=== PATIENT | male | born 1950 | race Caucasian/White ===

== ENCOUNTER 2024-05-08 14:26 | Inpatient (IN) ==
[2024-05-08] MEDS ORDERED: POTASSIUM CHLORIDE 40 MEQ in DEXTROSE 5% IN WATER 500 ML IV PRN (14:59)
[2024-05-08] MEDS ORDERED: POTASSIUM CHLORIDE 20 MEQ TABLET PO PRN ×2 (14:59)
[2024-05-08] MEDS ORDERED: ONDANSETRON 4 MG/2 ML VIAL IV PRN ×2 (14:59→18:05)
[2024-05-08] MEDS ORDERED: IPRATROPIUM/ALBUTEROL 3 ML AMPUL.NEB NEB PRN ×2 (14:59→18:05)
[2024-05-08] MEDS ORDERED: POLYETHYLENE GLYCOL 3350 17 GM PACKET PO PRN (14:59)
[2024-05-08] MEDS ORDERED: METOCLOPRAMIDE 10 MG/2 ML VIAL IV PRN (14:59)
[2024-05-08] MEDS ORDERED: METOPROLOL TARTRATE 5 MG/5 ML VIAL IV PRN (14:59)
[2024-05-08] MEDS ORDERED: SENNOSIDES 1 TABLET PO PRN (14:59)
[2024-05-08] MEDS ORDERED: MAGNESIUM SULFATE 2 GM/50 ML BAG IV PRN (14:59)
[2024-05-08] MEDS ORDERED: morphine 4 MG/ML VIAL IV PRN (14:59)
[2024-05-08 16:07] LABS: Basophils # (Auto) 0.04 K/mcL (0.00-0.30); Basophils % (Auto) 0.3 % (0.0-2.0); Eosinophils # (Auto) 0.01 K/mcL (0.00-0.70); Eosinophils % (Auto) 0.1 % (0.0-7.0); Lymphocytes # (Auto) 0.86 K/mcL (1.50-4.80); Lymphocytes % (Auto) 6.4 % (15.5-49.0); Mean Cell Volume 98.6 fL (80.0-100.0); Mean Corpuscular HGB Conc 32.1 g/dL (31.0-36.0); Monocytes # (Auto) 1.01 K/mcL (0.10-0.90); Monocytes % (Auto) 7.5 % (1.0-12.0); Neutrophils % (Auto) 85.6 % (38.0-78.0); Platelet Count 212 K/mcL (140-440); RBC 5.68 M/mcL (4.63-6.08); Red Cell Distribution Width 13.4 % (11.5-14.5); WBC 13.5 K/mcL (4.5-11.0)
[2024-05-08] MEDS ORDERED: LORazepam 2 MG/ML VIAL IV PRN (16:39)
[2024-05-08] MEDS ORDERED: chlordiazePOXIDE 25 MG CAPSULE PO PRN (16:39)
[2024-05-08] MEDS ORDERED: PROPOFOL 200 MG/20 ML VIAL IV ONE (16:42)
[2024-05-08] MEDS ORDERED: KETAMINE 50 MG/ML Syringe IV ONE (16:42)
[2024-05-08] MEDS ORDERED: ePHEDrine 50 MG/5 ML SYRINGE (ANEST) IV ONE (16:43)
[2024-05-08] MEDS ORDERED: ONDANSETRON 4 MG/2 ML VIAL ONE (16:43)
[2024-05-08] MEDS ORDERED: METOCLOPRAMIDE 10 MG/2 ML VIAL ONE (16:43)
[2024-05-08] MEDS ORDERED: TRANEXAMIC ACID 1,000 MG/10 ML VIAL ONE (16:43)
[2024-05-08] MEDS ORDERED: LIDOCAINE 2% PF 5 ML VIAL ONE (16:43)
[2024-05-08] MEDS ORDERED: GLYCOPYRROLATE 0.2 MG/ML VIAL IV ONE (16:43)
[2024-05-08] MEDS ORDERED: PHENYLephrine 1 MG/10 ML SYRINGE (ANEST) ONE (16:43)
[2024-05-08] MEDS ORDERED: DEXAMETHASONE 10 MG/ML VIAL ONE (16:43)
[2024-05-08 16:50] LABS: ALT/SGPT 24 U/L (<40); AST/SGOT 23 U/L (<40); Albumin 4.2 gm/dL (3.2-5.2); Albumin/Globulin Ratio 1.6 (1.0-2.3); Alkaline Phosphatase 135 U/L (39-117); Bilirubin,Direct 0.7 mg/dL (<0.3); Bilirubin,Total 1.6 mg/dL (0.1-1.0); Blood Urea Nitrogen 14 mg/dL (8-23); Carbon Dioxide 28 mmol/L (22-30); Chloride 98 mmol/L (96-108); Globulin 2.7 gm/dL (2.2-3.7); Glomerular Filtration Rate 87; Glucose 113 mg/dL (70-105); Lactate Dehydrogenase 185 U/L (135-225); Phosphorous 3.5 mg/dL (2.5-4.5); Potassium 4.5 mmol/L (3.3-5.1); Sodium 138 mmol/L (133-145); Triglycerides 40 mg/dL (<150); Uric Acid 5.3 mg/dL (2.5-8.0)
[2024-05-08] MEDS: ceFAZolin 1 GM VIAL IV SCH (17:30)
[2024-05-08] MEDS ORDERED: ceFAZolin 1 GM VIAL ONE (17:43)
[2024-05-08] MEDS ORDERED: METOPROLOL TARTRATE 5 MG/5 ML VIAL IV ONE (17:47)
[2024-05-08] MEDS ORDERED: HYDROmorphone 0.5 MG/0.5 ML SYRINGE ONE (17:53)
[2024-05-08] MEDS ORDERED: fentaNYL 100 MCG/2 ML VIAL IV PRN (18:05)
[2024-05-08] MEDS ORDERED: NALOXONE HCL 0.4 MG/ML VIAL IV PRN (18:05)
[2024-05-08] MEDS ORDERED: HYDROmorphone 0.5 MG/0.5 ML SYRINGE IV PRN (18:05)
[2024-05-08] MEDS ORDERED: LACTATED RINGERS 250 ML IV PRN (18:05)
[2024-05-08] MEDS ORDERED: FLEETS ADULT 1 DOSE ENEMA PR PRN (18:11)
[2024-05-08] MEDS ORDERED: KETOROLAC 15 MG/ML VIAL IV PRN (18:11)
[2024-05-08] MEDS ORDERED: BISACODYL 10 MG SUPP.RECT PR PRN (18:11)
[2024-05-08] MEDS: ACETAMINOPHEN 1,000 MG/100 ML BAG IV ONE (18:44)
[2024-05-08] MEDS: TRANEXAMIC ACID 1,000 MG/10 ML VIAL IV ONE (19:02)
[2024-05-08] MEDS: ceFAZolin 2 GM in DEXTROSE 5% IN WATER 50 ML IV SCH (20:10)
[2024-05-08] MEDS: FUROSEMIDE 40 MG/4 ML VIAL IV ONE ×2 (20:19→20:58)
[2024-05-08] MEDS: LACTATED RINGERS 1,000 ML IV SCH (20:58)
[2024-05-08] MEDS: ATORVASTATIN 20 MG TABLET PO SCH (20:58)
[2024-05-08] MEDS: 0.9 % SODIUM CHLORIDE 10 ML SYRINGE IV SCH (20:58)
[2024-05-08] MEDS: DOCUSATE SODIUM 100 MG CAPSULE PO SCH (20:58)
[2024-05-09] MEDS: ceFAZolin 1 GM VIAL IV SCH ×2 (00:58→09:40)
[2024-05-09 05:48] LABS: Basophils # (Auto) 0.01 K/mcL (0.00-0.30); Basophils % (Auto) 0.1 % (0.0-2.0); Eosinophils # (Auto) 0 K/mcL (0.00-0.70); Eosinophils % (Auto) 0 % (0.0-7.0); Hematocrit 50.3 % (40.1-51.0); Hemoglobin 16.3 g/dL (13.7-17.5); Lymphocytes # (Auto) 0.36 K/mcL (1.50-4.80); Lymphocytes % (Auto) 3.5 % (15.5-49.0); Mean Cell Volume 98.1 fL (80.0-100.0); Mean Corpuscular HGB Conc 32.4 g/dL (31.0-36.0); Mean Platelet Volume 9.3 fL (8.8-12.5); Monocytes # (Auto) 0.39 K/mcL (0.10-0.90); Monocytes % (Auto) 3.8 % (1.0-12.0); Neutrophils % (Auto) 92.5 % (38.0-78.0); Platelet Count 199 K/mcL (140-440); RBC 5.13 M/mcL (4.63-6.08); Red Cell Distribution Width 13.2 % (11.5-14.5); WBC 10.4 K/mcL (4.5-11.0)
[2024-05-09 06:17] LABS: ALT/SGPT 18 U/L (<40); AST/SGOT 22 U/L (<40); Albumin 3.8 gm/dL (3.2-5.2); Albumin/Globulin Ratio 1.5 (1.0-2.3); Alkaline Phosphatase 110 U/L (39-117); Bilirubin,Direct 0.7 mg/dL (<0.3); Bilirubin,Total 1.5 mg/dL (0.1-1.0); Blood Urea Nitrogen 14 mg/dL (8-23); Calcium 8.6 mg/dL (8.6-10.4); Carbon Dioxide 27 mmol/L (22-30); Chloride 96 mmol/L (96-108); Globulin 2.6 gm/dL (2.2-3.7); Glomerular Filtration Rate 87; Glucose 184 mg/dL (70-105); Lactate Dehydrogenase 172 U/L (135-225); Phosphorous 3.3 mg/dL (2.5-4.5); Potassium 4.6 mmol/L (3.3-5.1); Sodium 134 mmol/L (133-145); Triglycerides 32 mg/dL (<150); Uric Acid 5.1 mg/dL (2.5-8.0)
[2024-05-09] MEDS ORDERED: ENALAPRILAT 1.25 MG/ML VIAL IV PRN (08:27)
[2024-05-09] MEDS: MULTIVIT,THER IRON,CA,FA & MIN 1 TABLET PO SCH (08:45)
[2024-05-09] MEDS: FOLIC ACID 1 MG TABLET PO SCH (08:46)
[2024-05-09] MEDS: METOPROLOL SUCCINATE 50 MG TAB.XL.24H PO SCH (08:48)
[2024-05-09] MEDS ORDERED: THIAMINE 100 MG/ML VIAL IM SCH (09:00)
[2024-05-09] MEDS ORDERED: LISINOPRIL 20 MG TABLET PO SCH (09:00)
[2024-05-09] MEDS ORDERED: amLODIPine 5 MG TABLET PO SCH (09:00)
[2024-05-09] MEDS: FUROSEMIDE 40 MG/4 ML VIAL IV ONE (10:15)
[2024-05-09] MEDS: THIAMINE 100 MG in 0.9 % SODIUM CHLORIDE 50 ML IV SCH (10:15)
[2024-05-09] MEDS: RIVAROXABAN 20 MG TABLET PO SCH (20:51)
[2024-05-10] MEDS: ACETAMINOPHEN 325 MG TABLET PO PRN (02:01)
[2024-05-10 06:39] LABS: ALT/SGPT 18 U/L (<40); AST/SGOT 50 U/L (<40); Albumin 3.8 gm/dL (3.2-5.2); Albumin/Globulin Ratio 1.8 (1.0-2.3); Alkaline Phosphatase 99 U/L (39-117); Bilirubin,Direct 0.7 mg/dL (<0.3); Bilirubin,Total 1.3 mg/dL (0.1-1.0); Blood Urea Nitrogen 15 mg/dL (8-23); Calcium 8.6 mg/dL (8.6-10.4); Carbon Dioxide 32 mmol/L (22-30); Chloride 98 mmol/L (96-108); Globulin 2.1 gm/dL (2.2-3.7); Glomerular Filtration Rate 91; Glucose 130 mg/dL (70-105); Lactate Dehydrogenase 175 U/L (135-225); Phosphorous 3.9 mg/dL (2.5-4.5); Potassium 4.3 mmol/L (3.3-5.1); Sodium 138 mmol/L (133-145); Triglycerides 45 mg/dL (<150); Uric Acid 4.3 mg/dL (2.5-8.0)
[2024-05-10] MEDS: THIAMINE 100 MG TABLET PO SCH (08:55)
[2024-05-10] MEDS: IPRATROPIUM/ALBUTEROL 3 ML AMPUL.NEB NEB ONE (09:10)
[2024-05-10] MEDS: FUROSEMIDE 40 MG/4 ML VIAL IV SCH (09:57)
[2024-05-10] MEDS: HYDROcodone/APAP 5/325MG TABLET PO PRN (11:30)
[2024-05-11] MEDS: FUROSEMIDE 40 MG/4 ML VIAL IV ONE (08:12)
[2024-05-11] MEDS: SPIRONOLACTONE 25 MG TABLET PO ONE (08:13)
== END 2024-05-11 12:55 | disposition home or self-care (01) | DRG 480 ==
LOC: MEDSUR 14:26
PROVIDERS: ADMIT Internal Medicine; ATTEND Internal Medicine